=== PATIENT | female | born 1955 | race Caucasian/White ===

== ENCOUNTER 2018-02-08 11:10 | Emergency (ER) | payer BC ==
[~2018-02-08] VITALS: Ht 170.2 cm; Wt 66.8 kg
[~2018-02-08 11:10] MED LIST: MULTIVITAMIN FO1 CAP PO; NORCO 325 MG-51 TAB PO
[2018-02-08 11:25] VITALS: TEMP 98.2
[2018-02-08 15:31] VITALS: BP 120/63; PULSE 94
== END 2018-02-08 15:45 | disposition home or self-care (01) ==
LOC: COL.ER 11:10
DX: S52.501A Unspecified fracture of the lower end of right radius, initial encounter for closed fracture (principal); W01.0XXA Fall on same level from slipping, tripping and stumbling without subsequent striking against object, initial encounter; Z88.0 Allergy status to penicillin
CPT/HCPCS: J2704; J3010